=== PATIENT | female | born 1970 ===

== ENCOUNTER 2023-12-31 04:21 | Day surgery (SDC) | payer BC ==
[2023-12-27 15:49] VITALS: BMI 25.6
[2023-12-31 12:09] VITALS: TEMP 98
[2023-12-31 14:50] VITALS: RESP 18
[2023-12-31 14:51] VITALS: BP 108/60; PULSE 65
== END 2023-12-31 13:05 | disposition home or self-care (01) ==
LOC: JASU-ENDO 04:21
PROVIDERS: ATTEND Internal Medicine Gastroenterology
PROC: 0DBN8ZX Excision of Sigmoid Colon, Via Natural or Artificial Opening Endoscopic, Diagnostic (ICD-10-PCS; principal; 2023-12-31 09:30)
DX: Z12.11 Encounter for screening for malignant neoplasm of colon (principal); D12.5 Benign neoplasm of sigmoid colon; D12.7 Benign neoplasm of rectosigmoid junction; K64.8 Other hemorrhoids; Z86.010 Personal history of colon polyps
CPT/HCPCS: 81025; 88305-TC